=== PATIENT | male | born 1945 | race Caucasian/White ===

== ENCOUNTER 2023-03-13 08:36 | Emergency (ER) | payer MEDICARE ==
[~2023-03-13] VITALS: Ht 177.8 cm; Wt 7.0 kg
[2023-03-13] MEDS ORDERED: OMNI-PAC300 MG PO (10:46)
[2023-03-13 11:00] VITALS: BP 131/79
== END 2023-03-13 11:15 | disposition home or self-care (01) ==
LOC: ED 08:36
PROC: 0HQGXZZ Repair Left Hand Skin, External Approach (ICD-10-PCS; principal; 2023-03-13)
DX: S61.215A Laceration without foreign body of left ring finger without damage to nail, initial encounter (principal); I10 Essential (primary) hypertension; W27.0XXA Contact with workbench tool, initial encounter; Y92.009 Unspecified place in unspecified non-institutional (private) residence as the place of occurrence of the external cause